=== PATIENT | male | born 1975 | race Caucasian/White ===

== ENCOUNTER 2020-01-09 07:41 | Emergency (ER) | payer OTHER, SELFPAY ==
[2020-01-09 07:42] VITALS: BP 163/95; PULSE 81; RESP 16; TEMP 36.3; O2SAT 96; BMI 28.7
[2020-01-09 07:55] VITALS: BP 158/103; PULSE 76; RESP 13; O2SAT 95
--- NOTE | 2020-01-09 07:58 | RAD_ITS ---
STUDY: X-RAY CHEST REASON FOR EXAM: Male, 44 years old. SOB X 5 WEEKS TECHNIQUE: Single AP portable view of the chest. COMPARISON: None. FINDINGS: The lungs are clear and expanded. There is no demonstrated pleural abnormality. Normal size heart. Normal mediastinum and spencer. Normal visualized pulmonary arteries. There is mild tortuosity of the aortic arch and descending thoracic aorta. There are mild degenerative changes of the visualized thoracic spine. Normal visualized ribs, clavicles, and shoulders. There is no demonstrated abnormality of the visualized soft tissue structures of the upper abdomen. RAD/Chest 1 View (Portable) IMPRESSION: No demonstrated acute cardiopulmonary process. Electronically Signed: Chhaya Goldberg MD at 8:46 EDT Tel , Service support ,
--- NOTE | 2020-01-09 07:58 | ED.DCSUM_ITS ---
History of Present Illness Chief Complaint: Shortness of Breath Informant: Patient Onset: Weeks - 4 to 5 weeks Context: Gradual Onset Timing: Intermittent Current Severity: Mild Maximum Severity: Moderate Narrative: Patient presents with a 4 to 5-week history of shortness of breath. He states the episodes are very sporadic. He has been remodeling his basement recently and initially thought he was exposed to something there that was causing him increased shortness of breath. He states last night he had some slight chest pressure he describes more of lung tightness. He denies fever. He has had very minimal cough. He does report one prior episode with wheezing and used an inhaler for a very short time. He has no formal diagnosis of COPD or asthma. Past Medical History - Allergies and Home Meds Allergies/Adverse Reactions: Allergies No Known Allergies Allergy (Verified 01/09/20 07:44) Past Medical History: None Lives: Spouse/ Significant Other Smoking Status: Never smoker Review of Systems General: Denies: Chills, Fever Eyes: Denies: Visual changes - bilaterally ENT: Denies: Bilateral ear pain Cardiovascular: Denies: Chest pain Respiratory: Reports: Dyspnea, Cough - Minimal cough, - - Wheezing Gastrointestinal: Denies: Abdominal pain, Nausea, Vomiting Genitourinary: Denies: Dysuria Musculoskeletal: Denies: Swelling, Extremity Pain Skin: Denies: Rash Neurological: Denies: Headache Hematologic: Denies: Easy bruising, Easy bleeding Allergy: Denies: Uticaria Physical Exam Vital Signs/Narrative: Vital Signs Temp Pulse Resp BP Pulse Ox 01/09/20 07:55 76 13 158/103 H 95 01/09/20 07:42 97.3 F L 81 16 163/95 H 96 Inital Vital Signs reviewed: Yes General: Well nourished, Well developed Head: Normocephalic ENT: Moist mucous membranes Neck: Supple Cardiovascular: Regular rate, Regular rhythm Respiratory: No distress, - - Diminished air movement with mild wheezing. Abdomen: Soft, Nontender Extremities: Nontender Skin: Normal color Neurological: Alert, Oriented x3 Psychological: Normal affect Diagnostic/Tx/Re-eval Chest X-Ray - ED: 1 View, Read by ED Physician, Normal, Heart, Lungs, Mediastinum - Medical Decision Making Patient was given 4 puffs of an albuterol inhaler along with 60 mg of p.o. prednisone. On repeat evaluation he does feel that his breathing is improved. He does have increased air movement on auscultation but does still have some wheezing noted. He will be given 4 additional days of prednisone and will go home with the inhaler. ED Disposition - Plan for ED Patient: Disposition: Home or Assisted Living Diagnosis: Bronchospasm Instructions: ED Wheezing Prescriptions: Prednisone [Deltasone] 40 mg PO DAILY #8 tab Transmission Status: Pending to [facility] Additional Instructions: Albuterol inhaler - 2 puffs every 4 hours for wheezing
[2020-01-09] MEDS: predniSONE 20 MG Tablet 60 MG PO (08:09)
[2020-01-09] MEDS: INHALER, ASSIST DEVICES 1 EACH SPACER INHALATION (08:10)
== END 2020-01-09 08:48 | disposition home or self-care (01) ==
PROVIDERS: Emergency Provider Emergency Medicine
DX: J98.01 Acute bronchospasm (principal)
CPT/HCPCS: 71045; 99283

== ENCOUNTER 2020-08-22 11:45 | Day surgery (SDC) | payer OTHER, SELFPAY ==
[2020-07-25 14:21] VITALS: BMI 27.6
--- NOTE | 2020-08-22 11:14 | HP_ITS ---
Intake Vital Signs 07/25/20 Height 5 ft 10 in 07/25/20 Weight: 192 lb 6 oz 07/25/20 BP 122/76 H 07/25/20 Blood Pressure Location Rt brachial 07/25/20 Position Sitting 07/25/20 Respiration 18 07/25/20 Pulse 67 07/25/20 Pulse Source Monitor 07/25/20 Pulse Oximetry (%) 97 07/25/20 Oxygen Delivery Method room air Intake Visit Reasons: LEFT INGUINAL HERNIA Chief Complaint: possible left inguinal hernia Health Outreach Worker Required: No Accompanied by: Is patient in pain?: No Allergies No Known Allergies Allergy (Verified 07/25/20 14:22) Medications NK 07/25/20 [History Confirmed 07/25/20] COUNT INCLUDES THE [facility] Medical History Left groin pain (Acute) Surgical History history of surgery torsion testicle (Acute) Family History Sister Cancer skin cancer Social History (Updated 08/07/20 @ 11:[address] 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 Patient has had this increasing over the last several months that he is noticed. He has had no change in his bowel or bladder habits he does notice discomfort in the area. Patient has a history of left testicular torsion and a surgery to repair this. ROS General General: No weight change, appetite, fatigue, colon cancer, breast cancer or weakness HEENT HEENT: No difficulty swallowing, eye injury, eye surgery, swollen glands or hoarseness Endo Endocrine: No thyroid disease, diabetes mellitus, thyroid cancer, Hair loss, heat intolerance or cold intolerance Skin Skin: No rash or changing moles Breast Breast: No left breast lump, right breast lump, nipple discharge, breast pain, abnormal mammogram, abnormal US or breast enlargement Musc Musculoskeletal: No back problems, arthritis, rheumatoid arthritis, gout or joint pain Cardio Cardiovascular: No murmur, pacemaker, heart disease, atrial fibrillation, high blood pressure, heart attack, heart stent, palpitations, shortness of breat with exertion or chest pain Psych Psychiatric: No depression, anxiety or hearing voices Resp Respiratory: No shortness of breath, No sleep apnea, No cough, No COPD, No asthma, No emphysema, No wheezing Gastro Gastrointestinal: No abdominal pain, No nausea or vomiting, No diarrhea, No constipation, No blood in stool, No acid reflux, No hemorrhoids, No ulcers, No gallbladder problem, No black,tarry stools Jani Hematologic: No blood thinners, No blood disorders, No bleeding, No anemia, No blood clots Neuro Neurologic: No system reviewed and no additional complaints, except as docu, No as per HPI, No abnormal walking, No abnormal hearing, No abnormal movements, No abnormal speech, No behavioral changes, No burning sensations, No confusion, No seizure-like activity, No unsteadiness, No dizziness, No localized weakness, No frequent falls, No headache(s), No lack of coordination, No loss of vision, No memory loss, No numbness, No other visual disturbances, No radiating pain, No restless legs, No sensory deficit, No fainting, No tingling, No tremor(s), No weakness, No other Exam Const General: no acute distress, well developed, well hydrated Orientation: oriented to person, oriented to place, oriented to time [facility] Head: normocephalic, atraumatic Ears: external ears normal Mouth: moist mucous membranes Eyes Sclera: sclerae normal Pupils: normal by confrontation Neck Neck: no lymphadenopathy noted Neck mass: No Thyroid: thyroid normal, symmetrical Chest Chest palpation & inspection: normal inspection of the chest Breast Palpation: No nipple discharge Resp Effort & Inspection: normal respiratory effort Auscultation: clear to auscultation bilaterally Percussion: percussion normal Cardio Rate: regular rate Rhythm: regular rhythm Heart Sounds: no murmurs GI Palpation: soft, no hepatosplenomegaly, no masses, tender Rectal Exam: other Other: A reducible left inguinal hernia is palpated. Right side is stable Rectal exam deferred. Extrem General: normal to inspection, no clubbing, cyanosis or edema Assessment & Plan Problems 1. Left inguinal hernia K40.90 Plan My plan is to perform a Robotically assisted laparoscopic left inguinal hernia repair with mesh. The planned surgical procedure was discussed extensively with the patient. The risks, benefits, anticipated outcomes and possible complication were mentioned. The patient understands that all hernia repair surgery has a chance of recurrence and/or chronic post-operative pain. My staff has also explained the procedure in understandable terms and the patient was given the option to take printed material concerning the planned procedure. The patient had the opportunity to ask questions concerning the planned procedure. The patient freely consents to the planned procedure. I have instructed the patient since he has had a previous surgery for left testicular torsion He is at Higher risk of injury to the blood supply to that testicle.Higher risk of injury to the blood supply to that testicle. Coding Level of Care Code Off vis,new,level 3 Diagnoses Left inguinal hernia K40.90 COVID (Procedure Consent) Procedure Criteria Procedure Criteria: Yes Elective The surgeon/proceduralist and patient have discussed in detail the risk of exposure to and/or potential harm posed by the COVID-19 virus with having a surgery/procedure at this time versus the risk of? delaying the surgery/procedure. It is not possible to know either the risk of delaying the surgery or procedure or chance of getting an infection with perfect accuracy, but a joint decision was made between the patient and the surgeon/proceduralist ?to proceed at this time with the scheduled surgery/procedure as indicated on the consent form. I have re-examined the patient. There are no clinical changes since date of exam.
[2020-08-22 12:17] VITALS: BP 130/71; PULSE 80; RESP 16; TEMP 36.5; O2SAT 100; BMI 27.3
[2020-08-22] MEDS: Cefazolin 2 GM in 0.9% Normal Saline 100 ML IV (13:54)
--- NOTE | 2020-08-22 14:08 | DCINST_ITS ---
Discharge Diet: Light diet - advance as tolerated Discharge Activity: Return to Normal Activity, May Drive - when you are no longer taking narcotic pain medications., May Shower - with the bandage in place 1-2 days after surgery. Lifting Restrictions: 20 pounds for 8 weeks. Additional Activity Instructions:: Climbing stairs is fine, walking is encouraged. Sitting in bed may be uncomfortable. Sitting up using your lateral muscles (sitting up sideways) is usually more comfortable. Do not drive, work heavy equipment of sign legal documents for 24 hours. If your hernia repair was an ingunial repair, you may have scrotal swelling, an ice pack and/or athletic support can provide more comfort. Pain medications may cause nausea, you should typically eat light foods as you take your pain medications. Pain medications may also cause constipation. If you have difficulty with this, discuss with your doctor. Call your doctor if your incision/area has: Continuous Slow Oozing, Sudden Increased Bleeding, Increased Pain/ Swelling, Increased Redness, Foul Smelling Discharge Call your doctor if you observe: Fever of 101 or Higher Suture Line Care: Avoid Pulling/Pushing, Avoid Pinching/Bending Additional Dressing/Incision Instructions:: Leave the operative bandage on for 2-3 days. When you remove the bandage, leave the steri-strips on place until your follow up appointment or they fall off. Allergies/Adverse Reactions: Allergies No Known Allergies Allergy (Verified 08/22/20 11:58) Medications to take at Discharge Oxycodone HCl/Acetaminophen [Percocet 5/325] 1 - 2 tab PO Q4H PRN PRN 6 Days #30 tab 08/22/20 The following prescriptions were given: Oxycodone HCl/Acetaminophen [Percocet 5/325] 1 - 2 tab PO Q4H PRN PRN 6 Days #30 tab PRN Reason: Pain Transmission Status: Received by [facility] Primary Care Physician: Hussein Amos DO [Primary Care Provider] - Test Results: Test results from this visit will be discussed in further detail at your follow- up appointment, if applicable. Please Follow Up With: Fidel Rodriguez MD - [phone] When: Plan to have a follow up appointment in 7 days. Call to schedule.
--- NOTE | 2020-08-22 14:09 | OP.PCM_ITS ---
Problem List (1) Left inguinal hernia Status: Acute Report of Operation Date of Procedure: 08/22/20 Pre-Operative Diagnosis: Left inguinal hernia Post-Operative Diagnosis: Same Surgery/Procedure Performed:: Robotically assisted laparoscopic left inguinal hernia repair with mesh Type of Anesthesia:: General Anesthesiologist: Joshau Story Estimated Blood Loss (mL): 25 cc Description of Procedure: Patient was brought to the operating room. Placed in the supine position. Under excellent general tracheal ovation the abdomen was sterilely prepped and draped in usual fashion after Mason catheter was placed. Local was injected above the umbilicus incision was made dissection was carried down to the fascia the fascia grasped with a Joselin varies needle was placed inside the abdomen the abdomen was insufflated to 15 torr. #8 trocar was placed without difficulty. This was flank by 2 #8 trochars both placed under direct visualization. The robot was brought in and docked appropriately prograsp was placed in the left arm scissors were placed in the right arm. I scored the peritoneum dissected down to the pubic tubercle dissected slightly laterally identified an extremely large direct inguinal hernia I brought all the contents back into the preperitoneal space and then dissected further laterally dissecting the cord and vessel structures free and then finally dissected further laterally. I made sure the pubic tubercle was cleared as well as the Roel's ligament I then fashioned the progrip mesh into the wound it laid completely flat covering the defect completely. I then reperitonealized the area using 3 OV lock. I had excellent hemostasis. I inspected the right side no hernia was identified. Trochars were removed. Skin incisions were closed with subcuticular stitches of 4-0 Monocryl. Steri- Strips were applied sterile dressings were applied and the patient tolerated the procedure well. - Admit VTE Documentation VTE Present on Admission: No VTE Mechan Device Prophylaxis: SCD's VTE Pharm Prophylaxis ordered?: No Reason prophylaxis not ordered:: Treatment Not Indicated [id number]: [id number] Lap ing hernia repair init
[2020-08-22] MEDS: Bupivacaine Mpf 0.5% 30 ML VIAL (14:15)
[2020-08-22 15:11] VITALS: BP 125/86; BP 130/71; PULSE 59; RESP 16; TEMP 36.5; O2SAT 100
[2020-08-22] MEDS: Lactated Ringers 1,000 ML 100 ML IV ×2 (15:18→15:25)
[2020-08-22 15:25] VITALS: BP 121/66; BP 130/71; PULSE 58; RESP 16; O2SAT 100
[2020-08-22 15:30] VITALS: BP 116/73; BP 130/71; PULSE 57; RESP 16; O2SAT 97
[2020-08-22 15:45] VITALS: BP 105/70; BP 130/71; PULSE 54; RESP 16; TEMP 36.2; O2SAT 100
[2020-08-22] MEDS: oxyCODONE 5 MG Tablet PO (17:16)
[2020-08-22] MEDS: Acetaminophen 325 MG Tablet PO (17:16)
[2020-08-22 17:35] VITALS: BP 108/52; BP 130/71; PULSE 56; RESP 16; TEMP 36.8; O2SAT 99
== END 2020-08-22 18:00 | disposition home or self-care (01) ==
LOC: SDC 11:53 → AC 11:54
PROVIDERS: PCP Student in an Organized Health Care Education/Training Program; Referring Provider Surgery; Visit Provider Surgery
PROC: 0YQ64ZZ Repair Left Inguinal Region, Percutaneous Endoscopic Approach (ICD-10-PCS; CPT 49650; principal; 2020-08-22 13:40)
DX: K40.90 Unilateral inguinal hernia, without obstruction or gangrene, not specified as recurrent (principal)
CPT/HCPCS: 00840; 49650; S2900; 87426; C9803; J7120; J2405

== ENCOUNTER → 2023-02-13 | Outpatient (CLI) | payer OTHER, SELFPAY ==
[2023-02-13 14:23] LABS: AST(SGOT) 26 U/L (15-37); Alanine Aminotransfer ALT/SGPT 47 U/L (16-61); Albumin, Serum 4.4 g/dL (3.2-5.0); Alkaline Phosphatase 46 U/L (45-117); Anion Gap 7 (5-15); BUN 16 mg/dL (7-18); BUN/Creat Ratio 15.4 RATIO (10-20); Bilirubin, Direct 0.18 mg/dL (0.00-0.30); Calcium,Total 9.2 mg/dL (8.5-10.1); Chloride 107 mmol/L (98-107); Cholesterol 213 mg/dL (200); Creatinine, Serum 1.04 mg/dL (0.70-1.30); EST Glomerular Filtration Rate 82 mL/min (>60); Est Glom Filt Rate - Afr Amer 99 mL/min (>60); Globulin 3.4 g/dL (2.2-4.2); Glucose 94 mg/dL (74-106); High Density Lipoprotein 48 mg/dL; Potassium 4.1 mmol/L (3.5-5.1); Protein, Total 7.8 g/dL (6.4-8.2); Sodium Level 138 mmol/L (136-145); Triglycerides 90 mg/dL; Very Low Density Lipoprotein 18 mg/dL (5-40)
== END | disposition home or self-care (01) ==
LOC: MFPLAB 10:00
PROVIDERS: PCP Student in an Organized Health Care Education/Training Program; Visit Provider Family Medicine
DX: Z13.220 Encounter for screening for lipoid disorders (principal); Z83.79 Family history of other diseases of the digestive system; Z13.1 Encounter for screening for diabetes mellitus
CPT/HCPCS: 36415; 80048; 80061; 80076